=== PATIENT | female | born 1995 | race Caucasian/White ===

== ENCOUNTER 2024-07-25 22:35 | Emergency (ER) | payer BC ==
[2024-07-25] MEDS: Clindamycin HCl 150 MG Cap PO ONE (23:42)
== END 2024-07-25 23:51 | disposition home or self-care (01) ==
LOC: MW.ED 22:35
DX: K04.7 Periapical abscess without sinus (principal); Z88.0 Allergy status to penicillin; Z79.899 Other long term (current) drug therapy
CPT/HCPCS: 99283; A9270

== ENCOUNTER 2024-07-26 10:47 | Emergency (ER) | payer BC ==
[2024-07-26] MEDS: Amoxicillin/Clavulanate K 875-125 MG Tab PO ONE (12:14)
== END 2024-07-26 13:06 | disposition home or self-care (01) ==
LOC: MW.ED 10:47
DX: K08.89 Other specified disorders of teeth and supporting structures (principal); R22.0 Localized swelling, mass and lump, head; Z75.8 Other problems related to medical facilities and other health care; Z88.0 Allergy status to penicillin; Z79.899 Other long term (current) drug therapy
CPT/HCPCS: 99283; A9270